=== PATIENT | female | born 1960 | race Caucasian/White ===

== ENCOUNTER → 2025-07-05 08:17 | Outpatient (REF) | payer BC, SELFPAY | LOC: HWRCS 08:17 | PROVIDERS: ATTENDING PHYSICIAN Internal Medicine Cardiovascular Disease; FAMILY PHYSICIAN Internal Medicine | DX: R00.2 Palpitations (principal); R01.1 Cardiac murmur, unspecified | CPT/HCPCS: 93306 ==